=== PATIENT | female | born 1940 | race Caucasian/White ===

== ENCOUNTER 2017-02-09 16:13 | Emergency (ER) | payer MEDICARE, BC ==
[~2017-02-09] VITALS: Ht 162.6 cm; Wt 75.0 kg
[2017-02-09 16:14] VITALS: BP 183/84; PULSE 63; RESP 16; TEMP 97.5; O2SAT 99
--- NOTE | 2017-02-09 20:44 | PD ---
HPI Chief Complaint: Edema Time Seen by Provider: 20:32 Travel History International Travel<30 days: No Contact w/Intl Traveler<30days: No Traveled to known affect area: No History of Present Illness HPI This is a 76-year-old female who presents to the emergency department with swelling in her right leg that's been present for 6 weeks, constant, moderate severity, associated with some pain in her calf. She does say she injured her leg hitting it against a car door. She is not having any pain in the knee or ankle. She denies any shortness of breath, chest pain, fevers or chills. She did see her primary care physician earlier today who told her to come to the emergency department to be evaluated for blood clot. [facility] Past Medical History Narrative Medical htn dm Past Surgical History Hysterectomy: Yes Social History Tobacco Use: No Allergies-Medications (Allergen,Severity, Reaction): Coded Allergies: Peanut (Verified Allergy, Severe, Anaphylaxis, 02/09/17) Reported Meds & Prescriptions Reported Meds & Active Scripts Active Reported Norvasc (Amlodipine Besylate) 5 Mg Tab 5 Mg PO HS Metformin (Metformin HCl) 500 Mg Tab 500 Mg PO DAILY With a meal Review of Systems Except as stated in HPI: all other systems reviewed are Neg Physical Exam Narrative GENERAL:Well appearing, no acute distress SKIN: Warm and dry. HEAD: Atraumatic. Normocephalic. EYES: Pupils equal and round. No injection or drainage. ENT: Moist mucous membranes NECK: Trachea midline. CARDIOVASCULAR: Regular rate and rhythm. No murmur appreciated. 2+ bilateral DP pulses with normal capillary refill. RESPIRATORY: Clear to auscultation. Breath sounds equal bilaterally. GASTROINTESTINAL: Abdomen soft, non-tender, nondistended. MUSCULOSKELETAL: Swelling of the right calf down to the foot, painless range of motion of the right knee and right ankle with no focal tenderness the right lower extremity. NEUROLOGICAL: Awake and alert. No obvious cranial nerve deficits. Moving all extremities. PSYCHIATRIC: Appropriate mood and affect; insight and judgment normal. Data Data Last Documented VS Vital Signs Date Time Temp Pulse Resp B/P Pulse Ox O2 Delivery O2 Flow Rate FiO2 02/09/17 20:47 67 18 97 02/09/17 16:14 97.5 183/84 Room Air Orders Complete Blood Count With Diff (02/09/17 20:39) Basic Metabolic Panel (Bmp) (02/09/17 20:39) Prothrombin Time / Inr (Pt) (02/09/17 20:39) Act Partial Throm Time (Ptt) (02/09/17 20:39) Us Leg Venous Doppler (02/09/17 ) Tibia/Fibula (Ap/Lat) (02/09/17 ) Foot, Complete (Aox5isy) (02/09/17 ) Labs Laboratory Tests Test 02/09/17 21:00 White Blood Count 5.9 TH/MM3 Red Blood Count 4.94 MIL/MM3 Hemoglobin 14.0 GM/DL Hematocrit 42.3 % Mean Corpuscular Volume 85.6 FL Mean Corpuscular Hemoglobin 28.3 PG Mean Corpuscular Hemoglobin 33.0 % Concent Red Cell Distribution Width 13.3 % Platelet Count 282 TH/MM3 Mean Platelet Volume 8.7 FL Neutrophils (%) (Auto) 48.6 % Lymphocytes (%) (Auto) 38.4 % Monocytes (%) (Auto) 9.9 % Eosinophils (%) (Auto) 1.9 % Basophils (%) (Auto) 1.2 % Neutrophils # (Auto) 2.9 TH/MM3 Lymphocytes # (Auto) 2.3 TH/MM3 Monocytes # (Auto) 0.6 TH/MM3 Eosinophils # (Auto) 0.1 TH/MM3 Basophils # (Auto) 0.1 TH/MM3 CBC Comment DIFF FINAL Differential Comment Prothrombin Time 10.0 SEC Prothromb Time International 0.9 RATIO Ratio Activated Partial 25.0 SEC Thromboplast Time Sodium Level 139 MEQ/L Potassium Level 4.0 MEQ/L Chloride Level 104 MEQ/L Carbon Dioxide Level 29.3 MEQ/L Anion Gap 6 MEQ/L Blood Urea Nitrogen 15 MG/DL Creatinine 0.99 MG/DL Estimat Glomerular Filtration 54 ML/MIN Rate Random Glucose 117 MG/DL Calcium Level 9.5 MG/DL [facility] Medical Decision Making Medical Screen Exam Complete: Yes Emergency Medical Condition: Yes Interpretation(s) Afebrile, hypertensive No leukocytosis Electrolytes are reassuring Coags are normal Last 24 hours Impressions Tibia/Fibula X-Ray 02/09/17 0000 Signed Impressions: Service Date/Time: Thursday, February 09, 2017 21:13 - CONCLUSION: 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 Mild osteoarthritis is noted involving the femorotibial joint. There is no acute fracture or dislocation of the tibia or fibula. Achilles tendinitis is likely. Achilles calcaneal spurring is noted. Lalo Damon MD Foot X-Ray 02/09/17 0000 Signed Impressions: Service Date/Time: Thursday, February 09, 2017 21:11 - CONCLUSION: 1. Probable acute fractures involving the distal portions of the right 3rd, 4th and 5th proximal phalanges. Clinical correlation is recommended. 2. Thickening of the Achilles tendon suggesting probable Achilles tendinitis. 3. Achilles calcaneal spurring. Lalo Damon MD Ultrasound: No evidence of DVT, popliteal cyst present Differential Diagnosis DVT, Pinon cyst, stress fracture, arthritis, lymphedema Narrative Course This is a 76-year-old female who presents to the emergency department with swelling of her right lower extremity that on for several weeks. She has had several injuries in that time. She was placed on a monitor and an IV was established. Labs are obtained which were all reassuring. Ultrasound of the right lower extremity was obtained which demonstrates a popliteal cyst. X-rays of the tibia and foot were obtained. X-rays of the tibia demonstrate arthritis and possible Achilles tendinitis. X-rays of the foot demonstrate fractures of the third, fourth and fifth phalanges which are likely old based on the patient' s physical exam and she has no bruising and minimal pain. Patient will be placed in a hard shoe and was asked to follow-up with a knitting supervisor as well as her primary care physician. Diagnosis Primary Impression: Popliteal cyst Qualified Code: M71.21 - Popliteal cyst, right Additional Impression: Phalanx fracture, foot Qualified Code: S92.911A - Closed nondisplaced fracture of phalanx of toe of right foot, unspecified toe, initial encounter Referrals: Melia Choi DPM Additional Instructions: If you develop shortness of breath, chest pain, increasing swelling, coolness, numbness or change in color of your leg return to the emergency department. Follow-up with a knitting supervisor. Discuss your results with her primary care physician. Med/Other Pt SpecificInfo: No Change to Meds Disposition: 01 DISCHARGE HOME Condition: Stable Clary Dumont MD Feb 09, 2017 20:44
[2017-02-09] MEDS ORDERED: METF500T PO (20:50)
[2017-02-09] MEDS ORDERED: AMLO5 PO (20:50)
[2017-02-09 21:15] LABS: AUTOMATED NEUTROPHIL # 2.9 TH/MM3 (1.8-7.7); BASOPHIL # 0.1 TH/MM3 (0-0.2); BASOPHIL % 1.2 % (0.0-2.0); EOSINOPHIL # 0.1 TH/MM3 (0-0.4); EOSINOPHIL % 1.9 % (0.0-4.0); HEMATOCRIT 42.3 % (35.0-46.0); HEMO FLAGS DIFF FINAL; LYMPH % 38.4 % (9.0-44.0); LYMPHOCYTE # 2.3 TH/MM3 (1.0-4.8); MEAN CELL VOLUME 85.6 FL (80.0-100.0); MEAN CORPUSCULAR HEMOGLOBIN 28.3 PG (27.0-34.0); MONO % 9.9 % (0.0-8.0); NEUT % 48.6 % (16.0-70.0); PLATELET COUNT 282 TH/MM3 (150-450); RED BLOOD COUNT 4.94 MIL/MM3 (4.00-5.30); RED CELL DISTRIBUTION WIDTH 13.3 % (11.6-17.2); WHITE BLOOD COUNT 5.9 TH/MM3 (4.0-11.0)
[2017-02-09 21:22] LABS: INTERNATIONAL NORMALIZED RATIO 0.9 RATIO
[2017-02-09 21:42] LABS: BICARBONATE 29.3 MEQ/L (21.0-32.0)
--- NOTE | 2017-02-09 21:48 | RADRPT ---
EXAM DATE/TIME: 02/09/2017 21:13 [facility] COMPARISON: No previous studies available for comparison. INDICATIONS : Right lower leg pain and swelling after fall. MEDICAL HISTORY : Diabetes mellitus type II. SURGICAL HISTORY : None. ENCOUNTER: Initial ACUITY: 2 weeks PAIN SCORE: 5/10 LOCATION: Right lower leg. 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 Mild osteoarthritis is noted inv olving the femorotibial joint. There is no acute fracture or dislocation of the tibia or fibula. Achi lles tendinitis is likely. Achilles calcaneal spurring is noted. 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 Mild osteoarthritis is noted inv olving the femorotibial joint. There is no acute fracture or dislocation of the tibia or fibula. Achi lles tendinitis is likely. Achilles calcaneal spurring is noted. Lalo Damon MD on February 09, 2017 at 21:45 Board Certified Radiologist. This report was verified electronically.
--- NOTE | 2017-02-09 21:49 | RADRPT ---
EXAM DATE/TIME: 02/09/2017 21:11 [facility] COMPARISON: No previous studies available for comparison. INDICATIONS : Right foot pain and swelling after fall. MEDICAL HISTORY : None. SURGICAL HISTORY : None. ENCOUNTER: Initial ACUITY: 1 day PAIN SCORE: 5/10 LOCATION: Right foot. FINDINGS: There are acute fractures involving the distal portions of the right 3rd, 4th and 5th proximal phalan ges. Clinical correlation is recommended. Prominent Achilles calcaneal spurring is noted. Achilles tendinitis is also likely. CONCLUSION: 1. Probable acute fractures involving the distal portions of the right 3rd, 4th and 5th proximal pha langes. Clinical correlation is recommended. 2. Thickening of the Achilles tendon suggesting probable Achilles tendinitis. 3. Achilles calcaneal spurring. Lalo Damon MD on February 09, 2017 at 21:43 Board Certified Radiologist. This report was verified electronically.
--- NOTE | 2017-02-09 22:36 | RADRPT ---
EXAM DATE/TIME: 02/09/2017 21:58 [facility] COMPARISON: No previous studies available for comparison. INDICATIONS : Right leg swelling. MEDICAL HISTORY : Hypercholesterolemia. Diabetes. Endometrial cancer. SURGICAL HISTORY : Tonsillectomy. Hysterectomy. ENCOUNTER: Initial ACUITY: 2 months PAIN SCORE: 0/10 LOCATION: Right leg. TECHNIQUE: Venous ultrasound of the leg was performed from the inguinal ligament to the proximal calf. Real-russ e, color Doppler and spectral tracing, compression and augmentation techniques were used. FINDINGS: There is normal compressibility of the deep venous system from the inguinal region to the proximal ca lf. No echogenic clot is seen in the lumen of the common femoral, femoral, popliteal, and posterior tibial veins. There is a normal response of the venous system to proximal and distal augmentation an d respiration. There is a popliteal cyst measuring 2.5 x 2.9 x 0.6 cm. CONCLUSION: No evidence of deep venous thrombosis within the right lower extremity. Popliteal cys t measuring 2.5 x 2.9 x 0.6 cm. Lalo Damon MD on February 09, 2017 at 22:33 Board Certified Radiologist. This report was verified electronically.
== END 2017-02-09 23:20 | disposition home or self-care (01) ==
LOC: NEPA 16:13
DX: M71.21 Synovial cyst of popliteal space [Baker], right knee (principal); S92.911A Unspecified fracture of right toe(s), initial encounter for closed fracture; I10 Essential (primary) hypertension; E11.9 Type 2 diabetes mellitus without complications; W22.09XA Striking against other stationary object, initial encounter; Y93.9 Activity, unspecified; Y92.9 Unspecified place or not applicable; M79.661 Pain in right lower leg
CPT/HCPCS: 73590; 73630; 80048; 85025; 85610; 85730; 93971; 99284; L3260

== ENCOUNTER → 2017-03-04 | Outpatient (CLI) | payer MEDICARE, BC ==
[~2017-03-04] MED LIST: AMLO5 PO; METF500T PO
[2017-03-04 10:52] LABS: AUTOMATED NEUTROPHIL # 3.7 TH/MM3 (1.8-7.7); BASOPHIL # 0.1 TH/MM3 (0-0.2); BASOPHIL % 0.9 % (0.0-2.0); EOSINOPHIL # 0.1 TH/MM3 (0-0.4); EOSINOPHIL % 1.6 % (0.0-4.0); HEMATOCRIT 42.6 % (35.0-46.0); HEMO FLAGS DIFF FINAL; LYMPH % 27.6 % (9.0-44.0); LYMPHOCYTE # 1.7 TH/MM3 (1.0-4.8); MEAN CELL VOLUME 85.5 FL (80.0-100.0); MEAN CORPUSCULAR HGB CONC 33.9 % (32.0-36.0); MONO % 7.7 % (0.0-8.0); NEUT % 62.2 % (16.0-70.0); PLATELET COUNT 284 TH/MM3 (150-450); RED BLOOD COUNT 4.99 MIL/MM3 (4.00-5.30); RED CELL DISTRIBUTION WIDTH 13.8 % (11.6-17.2)
[2017-03-04 11:06] LABS: BLOOD, URINE SMALL (NEG); COMMENT (UR) CULT NOT INDICATED; CULTURE IF INDICATED CULT NOT INDICATED; GLUCOSE,URINE NEG (NEG); HYALINE CAST, URINE 16 /lpf (RARE); KETONE, URINE 10 mg/dL (NEG); MUCUS URINE MANY /lpf (OCC); NITRITE,URINE NEG (NEG); PH, URINE 5.5 (5.0-8.5); SQUAMOUS EPITHELIAL CELL URINE 3 /hpf (0-5); URINE COLOR YELLOW (YELLW/STRAW)
[2017-03-04 11:25] LABS: ALKALINE PHOSPHATASE 78 U/L (45-117); HDL CHOLESTEROL 68.6 MG/DL (40.0-60.0); TOTAL BILIRUBIN ADULT 0.6 MG/DL (0.2-1.0)
[2017-03-04 12:01] LABS: ALT (GPT) 18 U/L (10-53); ANION GAP 8 MEQ/L (5-15); AST (GOT) 20 U/L (15-37); BICARBONATE 26.3 MEQ/L (21.0-32.0); BLOOD UREA NITROGEN 21 MG/DL (7-18); CHLORIDE 105 MEQ/L (98-107); GLOMERULAR FILTRATION RATE 52 ML/MIN (>89); GLUCOSE,FASTING 95 MG/DL (74-99); LDL CHOLESTEROL 103 MG/DL (0-99); SODIUM (NA) 139 MEQ/L (136-145)
[2017-03-04 12:03] LABS: POTASSIUM 4.6 MEQ/L (3.5-5.1)
[2017-03-04 14:27] LABS: HEMOGLOBIN A1a 1.1 %; HEMOGLOBIN A1b 1.8 %; HEMOGLOBIN LA1C 2.1 %
== END ==
LOC: CLAB 10:16
DX: I10 Essential (primary) hypertension (principal); E78.5 Hyperlipidemia, unspecified; E11.9 Type 2 diabetes mellitus without complications
CPT/HCPCS: 36415; 80053; 80061; 81001; 83036; 84443; 85025

== ENCOUNTER → 2017-06-14 | Outpatient (CLI) | payer MEDICARE, BC ==
[2017-06-14 08:47] LABS: AUTOMATED NEUTROPHIL # 3.3 TH/MM3 (1.8-7.7); BASOPHIL # 0.1 TH/MM3 (0-0.2); BASOPHIL % 1.1 % (0.0-2.0); EOSINOPHIL # 0.1 TH/MM3 (0-0.4); EOSINOPHIL % 2.4 % (0.0-4.0); HEMATOCRIT 42.2 % (35.0-46.0); HEMO FLAGS DIFF FINAL; LYMPH % 28.8 % (9.0-44.0); LYMPHOCYTE # 1.7 TH/MM3 (1.0-4.8); MEAN CELL VOLUME 87.5 FL (80.0-100.0); MEAN CORPUSCULAR HEMOGLOBIN 28.7 PG (27.0-34.0); MEAN CORPUSCULAR HGB CONC 32.8 % (32.0-36.0); MONO % 10.3 % (0.0-8.0); NEUT % 57.4 % (16.0-70.0); PLATELET COUNT 254 TH/MM3 (150-450); RED BLOOD COUNT 4.82 MIL/MM3 (4.00-5.30); RED CELL DISTRIBUTION WIDTH 14.4 % (11.6-17.2); WHITE BLOOD COUNT 5.8 TH/MM3 (4.0-11.0)
[2017-06-14 09:19] LABS: ALT (GPT) 15 U/L (10-53)
[2017-06-14 09:22] LABS: ALKALINE PHOSPHATASE 71 U/L (45-117); HDL CHOLESTEROL 77.1 MG/DL (40.0-60.0); LDL CHOLESTEROL 98 MG/DL (0-99); TOTAL BILIRUBIN ADULT 0.8 MG/DL (0.2-1.0)
[2017-06-14 09:34] LABS: ANION GAP 8 MEQ/L (5-15); AST (GOT) 23 U/L (15-37); BICARBONATE 26.5 MEQ/L (21.0-32.0); BLOOD UREA NITROGEN 22 MG/DL (7-18); CHLORIDE 105 MEQ/L (98-107); GLOMERULAR FILTRATION RATE 55 ML/MIN (>89); GLUCOSE,FASTING 117 MG/DL (74-99); SODIUM (NA) 139 MEQ/L (136-145)
[2017-06-14 09:36] LABS: POTASSIUM 4.2 MEQ/L (3.5-5.1)
[2017-06-14 13:02] LABS: HEMOGLOBIN A1b 2.2 %; HEMOGLOBIN Ao 83.3 %; HEMOGLOBIN LA1C 2.2 %; HEMOGLOBIN P3 4.3 %
== END ==
LOC: CLAB 08:10
DX: E78.5 Hyperlipidemia, unspecified (principal); E11.9 Type 2 diabetes mellitus without complications; I10 Essential (primary) hypertension
CPT/HCPCS: 36415; 80053; 80061; 83036; 85025

== ENCOUNTER → 2018-01-18 | Outpatient (CLI) | payer MEDICARE, BC ==
[2018-01-18 09:03] LABS: BILIRUBIN, URINE NEG (NEG); BLOOD, URINE SMALL (NEG); GLUCOSE,URINE NEG (NEG); KETONE, URINE NEG (NEG); MUCUS URINE MANY /lpf (OCC); NITRITE,URINE NEG (NEG); PH, URINE 5.5 (5.0-8.5); SQUAMOUS EPITHELIAL CELL URINE 2 /hpf (0-5); URINE COLOR YELLOW (YELLW/STRAW); URINE LEUKOCYTE ESTERASE SMALL (NEG)
[2018-01-18 09:18] LABS: AUTOMATED NEUTROPHIL # 2.3 TH/MM3 (1.8-7.7); EOSINOPHIL # 0.2 TH/MM3 (0-0.4); EOSINOPHIL % 4.2 % (0.0-4.0); HEMATOCRIT 43.3 % (35.0-46.0); HEMOGLOBIN 14.6 GM/DL (11.6-15.3); LYMPH % 33.4 % (9.0-44.0); LYMPHOCYTE # 1.6 TH/MM3 (1.0-4.8); MEAN CELL VOLUME 86.1 FL (80.0-100.0); MEAN CORPUSCULAR HGB CONC 33.6 % (32.0-36.0); MEAN PLATELET VOLUME 9.1 FL (7.0-11.0); MONO % 14.3 % (0.0-8.0); MONOCYTE # 0.7 TH/MM3 (0-0.9); NEUT % 47.1 % (16.0-70.0); PLATELET COUNT 233 TH/MM3 (150-450); RED BLOOD COUNT 5.03 MIL/MM3 (4.00-5.30); RED CELL DISTRIBUTION WIDTH 13.7 % (11.6-17.2); WHITE BLOOD COUNT 4.9 TH/MM3 (4.0-11.0)
[2018-01-18 09:36] LABS: ALBUMIN 3.8 GM/DL (3.4-5.0); AST (GOT) 18 U/L (15-37); BICARBONATE 26.5 MEQ/L (21.0-32.0); BLOOD UREA NITROGEN 17 MG/DL (7-18); CALCIUM 8.8 MG/DL (8.5-10.1); CHLORIDE 102 MEQ/L (98-107); CREATININE 1.08 MG/DL (0.50-1.00); GLOMERULAR FILTRATION RATE 49 ML/MIN (>89); GLUCOSE,FASTING 115 MG/DL (74-99); SODIUM (NA) 136 MEQ/L (136-145)
[2018-01-18 09:37] LABS: ALT (GPT) 20 U/L (10-53); CHOLESTEROL 164 MG/DL (120-200); TRIGLYCERIDES 69 MG/DL (42-150)
[2018-01-18 09:46] LABS: ALKALINE PHOSPHATASE 81 U/L (45-117); CHOLESTEROL/ HDL RATIO 2.12 RATIO; HDL CHOLESTEROL 77.3 MG/DL (40.0-60.0); LDL CHOLESTEROL 73 MG/DL (0-99); TOTAL BILIRUBIN ADULT 0.6 MG/DL (0.2-1.0); TOTAL PROTEIN 7.4 GM/DL (6.4-8.2)
[2018-01-18 16:12] LABS: HEMOGLOBIN A1C 6.6 % (4.3-6.0)
== END ==
LOC: CLAB 08:09
DX: I10 Essential (primary) hypertension (principal); E11.9 Type 2 diabetes mellitus without complications
CPT/HCPCS: 36415; 80053; 80061; 81001; 83036; 84443; 85025